=== PATIENT | male | born 1985 | race Caucasian/White ===

== ENCOUNTER 2017-11-23 16:19 | Emergency (ER) | payer OTHER ==
[2017-11-23 16:45] VITALS: BP 137/82; PULSE 86; RESP 18; TEMP 98.2; O2SAT 96
--- NOTE | 2017-11-23 17:47 | EDPHY ---
H & P Smoking Status: Never smoked Time Seen by Provider: 11/23/17 17:07 HPI/ROS: CHIEF COMPLAINT: Bodily fluid exposure HISTORY OF PRESENT ILLNESS: 32-year-old male presents to the emergency department with bodily fluid exposure. He works with [employer] and was involved in a trauma and got blood on his skin and clothing. He does not have any open wounds. He has no complaints. He does not want any blood drawn if the source is blood is negative. No respiratory complaints. REVIEW OF SYSTEMS: Constitutional: No fever, no chills. Eyes: No double or blurry vision. ENT: No sore throat. Respiratory: No cough, no shortness of breath. Cardiac: No chest pain. Gastrointestinal: No abdominal pain, vomiting or diarrhea. Genitourinary: No dysuria. Musculoskeletal: No neck or back pain. Skin: No rashes. Neurological: No headache. (Elaina Holcomb) Past Medical/Surgical History: Negative (Elaina Holcomb) Social History: (Elaina Holcomb) Physical Exam: General Appearance: Alert, no distress. Eyes: Pupils equal and round. Extraocular motions are all intact. ENT: Mouth: Mucous membranes moist. Respiratory: No wheezing, rhonchi, or rales, lungs are clear to auscultation. Cardiovascular: Regular rate and rhythm. Gastrointestinal: Abdomen is soft and nontender, no masses, no rebound or guarding, bowel sounds normal. Neurological: Alert and oriented x 3, cranial nerves II through XII grossly intact Skin: Warm and dry, no rashes. Musculoskeletal: Nontender to palpate along the cervical, thoracic or lumbar spine. Neck is supple. Extremities: Full range of motion and no peripheral edema. Psychiatric: Patient is oriented X 3, there is no agitation. (Elaina Holcomb) Constitutional: Initial Vital Signs Temperature (C) 36.8 C 11/23/17 16:43 Heart Rate 86 11/23/17 16:43 Respiratory Rate 18 11/23/17 16:43 Blood Pressure 137/82 H 11/23/17 16:43 O2 Sat (%) 96 11/23/17 16:43 O2 Delivery Mode Room Air Allergies/Adverse Reactions: No Known Allergies Allergy (Unverified 11/23/17 16:43) Home Medications: Medication Instructions Recorded NK [No Known Home Meds] 11/23/17 Medical Decision Making ED Course/Re-evaluation: The source's blood who was in the emergency department as a trauma, was negative for HIV. The patient does not want any further blood work drawn. He would like to be discharged. Patient's tetanus shot is current. (Elaina Holcomb) Differential Diagnosis: Including but not limited to bodily fluid exposure, cellulitis, retained foreign body. (Elaina Holcomb) Other Provider: The patient was evaluated and managed by the Physician [employer]. My co- signature indicates that I have reviewed this chart and I agree with the findings and plan of care as documented. I am the secondary supervising physician. (Vida Mayen) Departure - Departure Disposition: Home, Routine, Self-Care Clinical Impression: Bodily fluid exposure Instructions: Body Substance Exposure (ED) Additional Instructions: Please return if you have any concerns. Referrals: Work Comp Ref/Restrictions [Outside] - As per Instructions
== END 2017-11-23 18:12 | disposition home or self-care (01) ==
DX: Z77.21 Contact with and (suspected) exposure to potentially hazardous body fluids (principal)